=== PATIENT | female | born 1990 | race Caucasian/White ===

== ENCOUNTER → 2016-08-19 | Outpatient (CLI) | payer OTHER ==
[~2016-08-19] MED LIST: BCPILLS PO; HYDR-5688 PO; MULT-506 PO
--- NOTE | 2016-08-19 11:41 | DIAGNOSTIC IMAGING REPORT ---
CHEST 2 VIEWS ROUTINE CLINICAL HISTORY: SOB dyspnea COMPARISON STUDY: 06/04/2014 FINDINGS: The bones soft tissues and hemidiaphragms are normal. The cardiomediastinal silhouette is normal. The lungs are clear. The pulmonary vasculature is normal. IMPRESSION: Negative chest. Electronically signed by: Antoine Fraser M.D. 08/19/2016 11:39 AM Dictated Date/Time: 08/19/2016 11:38 AM
== END | disposition home or self-care (01) ==
LOC: C.RAD1850 11:25
PROVIDERS: ATTEND Family Medicine
DX: R05 Cough (principal); R06.02 Shortness of breath

== ENCOUNTER 2017-07-08 15:24 | Emergency (ER) | payer OTHER ==
[~2017-07-08] VITALS: Ht 160 cm; Wt 134.9 kg
[2017-07-08 15:30] VITALS: TEMP 36.6; Ht 160 cm; Wt 134.9 kg
[2017-07-08] MEDS ORDERED: KETOROLAC TROMETHAMINE 30 MG/ML VIAL IV STA (15:44)
[2017-07-08] MEDS ORDERED: SODIUM CHLORIDE 0.9% 1000ML 1,000 ML IV STA (15:44)
[2017-07-08] MEDS ORDERED: DiphenhydrAMINE HCL 50 MG/ML VIAL IV STA (15:44)
[2017-07-08] MEDS ORDERED: PROCHLORPERAZINE 5 MG/ML 2 ML VIAL IV STA (15:44)
--- NOTE | 2017-07-08 16:23 | DIAGNOSTIC IMAGING REPORT ---
HEAD WITHOUT CONTRAST (CT) CLINICAL HISTORY: 27 years-old Female with SUAREZ . Acute headache TECHNIQUE: Multiple axial CT images of the head were obtained without contrast. A dose lowering technique was utilized adhering to the principles of ALARA. CT DOSE: 580.48 mGy.cm COMPARISON: None. FINDINGS: No acute intracranial hemorrhage, midline shift, intracranial mass, hydrocephalus, territorial ischemia or abnormal extra-axial collection. The calvarium is intact. The mastoid air cells, and middle ear cavities are clear. Minimal mucosal thickening of the dependent left maxillary sinus. Hypoplasia of the left frontal sinus. Soft tissues and orbits are unremarkable. IMPRESSION: 1. No acute intracranial abnormality. 2. Minimal left maxillary sinus disease. The above report was generated using voice recognition software. It may contain grammatical, syntax or spelling errors. Electronically signed by: Rock Pascual M.D. 07/08/2017 4:22 PM Dictated Date/Time: 07/08/2017 4:20 PM
[2017-07-08 17:55] VITALS: BP 120/71; PULSE 86; O2SAT 100
--- NOTE | 2017-07-08 21:17 | EMERGENCY ROOM VISIT NOTE ---
History Report prepared by Tiffanie: Nick Chan Under the Supervision of: Dr. Collins Anaya D.O. First contact with patient: 15:35 Chief Complaint: HEADACHE Stated Complaint: POSSIBLE FIRST MIGRAIN, NAUSEA History of Present Illness The patient is a 27 year old female who presents to the Emergency Room with complaints of a constant headache that began at 1130 this afternoon, 4 hours ago. She states that when the headache first onset it was at its worst, and it is now slowly improving. The headache is located across her temples and her eyes. She is experiencing nausea secondary to the headache and has vomited several times. The patient attempted to take Aleve, but vomited the pill immediately. Her headache is worsened by light and noise, but has no acute vision irregularities. She denies any other fevers, chest pain, shortness of breath, stiff neck, diarrhea, pain with urination, and melena. No recent trauma or falls. 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 A total of 10 systems reviewed and were otherwise negative. Past Medical & Surgical Medical Problems: (1) Hypoglycemia Family History Diabetes mellitus Social History Smoking Status: Never Smoker Marital Status: in relationship Current/Historical Medications Scheduled Control Pills ( Control Pills), 1 TAB PO DAILY Multivitamin (Multivitamin), 1 TAB PO DAILY Allergies Coded Allergies: No Known Allergies (Unverified , 02/28/13) Physical Exam Vital Signs Date Time Temp Pulse Resp B/P (MAP) Pulse Ox O2 Delivery O2 Flow Rate FiO2 07/08/17 17:55 86 120/71 100 07/08/17 15:30 36.6 95 20 115/82 98 Room Air Physical Exam GENERAL: Sitting up in bed, alert, well appearing, well nourished, no distress, non-toxic EYE EXAM: normal conjunctiva. PERRL and EOM's intact. Optic disc are sharp bilaterally. OROPHARYNX: no exudate, no erythema, lips, buccal mucosa, and tongue normal and mucous membranes are moist NECK: supple, no nuchal rigidity, no adenopathy, non-tender LUNGS: Clear to auscultation. Normal chest wall mechanics HEART: no murmurs, S1 normal and S2 normal ABDOMEN: abdomen soft, non-tender, normo-active bowel sounds, no masses, no rebound or guarding. BACK: Back is symmetrical on inspection and there is no deformity, no midline tenderness, no CVA tenderness. SKIN: no rashes and no bruising UPPER EXTREMITIES: upper extremities are grossly normal. LOWER EXTREMITIES: No pitting edema. NEURO EXAM: Normal sensorium, cranial nerves II-XII intact, normal speech, no weakness of arms, no weakness of legs. No drift. Finger to nose intact. Gross sensation intact. Medical Decision & Procedures ER Provider Diagnostic Interpretation: Radiology results as stated below per my review and the radiologist's interpretation: HEAD WITHOUT CONTRAST (CT) CLINICAL HISTORY: 27 years-old Female with SUAREZ . Acute headache TECHNIQUE: Multiple axial CT images of the head were obtained without contrast. A dose lowering technique was utilized adhering to the principles of ALARA. CT DOSE: 580.48 mGy.cm COMPARISON: None. FINDINGS: No acute intracranial hemorrhage, midline shift, intracranial mass, hydrocephalus, territorial ischemia or abnormal extra-axial collection. The calvarium is intact. The mastoid air cells, and middle ear cavities are clear. Minimal mucosal thickening of the dependent left maxillary sinus. Hypoplasia of the left frontal sinus. Soft tissues and orbits are unremarkable. IMPRESSION: 1. No acute intracranial abnormality. 2. Minimal left maxillary sinus disease. The above report was generated using voice recognition software. It may contain grammatical, syntax or spelling errors. Electronically signed by: Rock Pascual M.D. 07/08/2017 4:22 PM Dictated Date/Time: 07/08/2017 4:20 PM Medications Administered Medications (Trade) Dose Ordered Sig/Sylvia Route Start Time Stop Time Status Last Admin Dose Admin Sodium Chloride 1,000 ml @ 999 mls/hr Q1H1M STAT IV 07/08/17 15:44 07/08/17 16:44 DC 07/08/17 16:00 999 MLS/HR Ketorolac Tromethamine (Toradol Inj) 30 mg NOW STAT IV 07/08/17 15:44 07/08/17 15:45 DC 07/08/17 16:00 30 MG Diphenhydramine HCl (Benadryl Inj) 50 mg NOW STAT IV 07/08/17 15:44 3/9/18 15:45 DC 07/08/17 16:00 50 MG Prochlorperazine Edisylate (Compazine Inj) 5 mg NOW STAT IV 07/08/17 15:44 07/08/17 15:45 DC 07/08/17 16:00 5 MG ED Course ED COURSE: Vital signs were reviewed and showed normal vitals The patients medical record was reviewed The above diagnostic studies were performed and reviewed. ED treatments and interventions as stated above. 1538: The patient was evaluated in room A12. A complete history and physical examination was performed. 1544: Ordered Compazine 5 mg IV, Benadryl 50 mg IV, Toradol 30 mg IV, Sodium Chloride 1000 mL @ 999 mL/hr IV. 1628: I checked on the patient at this time. I discussed the risk and benefits of performing a Lumbar Puncture. She declines. She feels much better at this time. 1644: Upon reevaluation, the patient is resting in bed.I discussed my findings with the patient and she understands and agrees with the treatment plan. Based on the patients age, coexisting illnesses, exam and lab findings the decision to treat as an outpatient was made. The patient remained stable while under my care. The patient appeared well at the time of discharge. Medical Decision Differential Diagnosis includes but is not limited to headache, tension headache , cluster headache, migraine, subarachnoid hemorrhage, meningitis, mass, central venous thrombus, concussion, trauma and epidural/subdural hemorrhage. Patient is a 27-year-old female who presents to ER for headache which started around 1130 this morning. Is now gradually getting better. She no fevers. No stiff neck. No other complaints. She is neurologically intact. She notes that this headache initially came on very severe now is improving. IV was established and she was given IV Toradol, Compazine and Benadryl. She had complete resolution of her headache. I recommended LP to rule out subarachnoid hemorrhage but she declined. CT was performed within 6 hours. I did discuss this data with her although recommended for 100% certainty we should perform an LP. She declined following informed refusal of care. Patient was updated at bedside. She was discharged follow-up with PCP as an outpatient. She was instructed not to drive for the remainder the day. Discussed with Pt concerning signs and symptoms to watch out for. Pt was instructed to follow up with their PCP and discussed with the patient their option to return to the ED at anytime for persistent or worsening symptoms. The appropriate anticipatory guidance and out-patient management, including indications for return to the emergency department, were explained at length to the patient and understood. Medication Reconcilliation Current Medication List: was personally reviewed by me Blood Pressure Screening Patient's blood pressure: Normal blood pressure Impression Primary Impression: Headache Scribe Attestation The scribe's documentation has been prepared under my direction and personally reviewed by me in its entirety. I confirm that the note above accurately reflects all work, treatment, procedures, and medical decision making performed by me. Departure Information Dispostion Home / Self-Care Referrals Abner Huerta M.D. (PCP) Forms HOME CARE DOCUMENTATION FORM, IMPORTANT VISIT INFORMATION Patient Instructions My [facility] Additional Instructions Please follow up with your primary care doctor with in the next 24 hours. Any worsening of your symptoms, please return to the ED immediately. This includes any fevers greater than 100.4, worsening pain, weakness or numbness in arms or legs, chest pain, shortness breath, persistent nausea, vomiting, unable to eat or drink, or any other concerning signs or symptoms from your standpoint. You were given medications during this visit that will inhibit your ability to drive, operate machinery and work. Please do NOT drive, operate machinery, drink alcohol or work for the next 12hrs. Problem Qualifiers Primary Impression: Headache Headache type: unspecified Headache chronicity pattern: acute headache Intractability: not intractable Qualified Codes: R51 - Headache
== END 2017-07-08 17:56 | disposition home or self-care (01) ==
LOC: C.EDB 15:25 → C.EDA 17:56
DX: R51 Headache (principal); Z79.3 Long term (current) use of hormonal contraceptives; Z83.3 Family history of diabetes mellitus